=== PATIENT | female | born 1940 | race Caucasian/White ===

== ENCOUNTER 2024-10-09 04:39 | Emergency (ER) | payer MEDICARE, BC ==
[~2024-10-09] VITALS: Ht 152.4 cm; Wt 49.9 kg
[2024-10-09] MEDS ORDERED: LEVO88TA2 PO (04:59)
[2024-10-09] MEDS ORDERED: DORZ10DR11 OP (04:59)
[2024-10-09] MEDS ORDERED: ATOM40CA PO (04:59)
[2024-10-09] MEDS ORDERED: SERT100T PO (04:59)
[2024-10-09] MEDS ORDERED: POTA10CA43 PO (04:59)
[2024-10-09] MEDS ORDERED: LOSA50TA39 PO (04:59)
[2024-10-09] MEDS ORDERED: POLY17PO4 PO (04:59)
[2024-10-09] MEDS ORDERED: ATOR20TA PO (04:59)
[2024-10-09] MEDS ORDERED: METO-356 PO (04:59)
[2024-10-09] MEDS ORDERED: FURO40TA5 PO (04:59)
[2024-10-09] MEDS ORDERED: MORPHINE SULFATE 4 MG/1 ML DISP.SYRIN ONE (05:06)
[2024-10-09] MEDS: MORPHINE SULFATE 2 MG/1 ML DISP.SYRIN IV ONE (05:07)
[2024-10-09] MEDS: FAMOTIDINE. 20 MG/2 ML VIAL IV ONE (05:07)
[2024-10-09] MEDS: IV NORMAL SALINE 1000 ML BAG IV ONE (05:07)
[2024-10-09] MEDS: ONDANSETRON 4 MG/2 ML VIAL IV ONE (05:07)
[2024-10-09 05:14] LABS: *BILIRUBIN,URIN NEGATIVE (NEGATIVE); *BLOOD, URINE NEGATIVE (NEGATIVE); *CLARITY,URINE SLIGHTLY CLOUDY (CLEAR); *COLOR,URINE YELLOW (YELLOW); *KETONES,URINE TRACE (NEGATIVE); *PROTEIN,URINE NEGATIVE (NEGATIVE); *UROBILINOGEN,URINE 0.2 E.U./dl (NORMAL); LEUKOCYTE ESTERASE ,URINE NEGATIVE (NEGATIVE); NITRITE, URINE NEGATIVE (NEGATIVE); PLATELET COUNT (AUTO) 216 K/uL (179-408); RED BLOOD CELL COUNT(AUTO) 5.10 MIL/uL (3.63-4.92); RED CELL DISTRIBUTION WIDTH 15.4 % (12.3-17.7); UGLUCOSE NEGATIVE (NEGATIVE); WHITE BLOOD COUNT (AUTO) 14.2 K/uL (3.8-11.8)
[2024-10-09 05:19] LABS: CREATININE 1.0 mg/dL (0.6-1.3); SODIUM SERUM 141 mmol/L (136-145); UREA NITROGEN, BLOOD 27 mg/dL (7-18)
[2024-10-09 05:23] LABS: ASPARTATE AMINOTRANSFERASE 14 U/L (15-37); TOTAL PROTEIN, SERUM 7.4 g/dL (6.4-8.2)
[2024-10-09 05:42] LABS: SQUAMOUS EPITHELIAL CELL,UR FEW /HPF (NONE SEEN); URINE AMORPHOUS PHOSPHATES FEW /HPF
[2024-10-09 05:43] LABS: COARSE GRANULAR CASTS,URINE 0-3 /LPF
[2024-10-09] MEDS ORDERED: HYDROMORPHONE 1 MG/1 ML DISP.SYRIN ONE (05:49)
[2024-10-09] MEDS: HYDROMORPHONE 1 MG/1 ML DISP.SYRIN IV ONE (06:01)
[2024-10-09 06:17] VITALS: BP 177/76
[2024-10-09] MEDS ORDERED: POTASSIUM CHLORIDE 20 MEQ TAB.PRT.SR ONE (06:33)
[2024-10-09] MEDS: POTASSIUM CHLORIDE 20 MEQ TAB.PRT.SR PO ONE (06:35)
[2024-10-09 06:44] VITALS: BP 175/72; O2SAT 96
== END 2024-10-09 06:41 | disposition home or self-care (01) ==
LOC: ER 04:41
DX: K59.00 Constipation, unspecified (principal); R10.84 Generalized abdominal pain; R11.2 Nausea with vomiting, unspecified; E78.5 Hyperlipidemia, unspecified; E87.6 Hypokalemia; E03.9 Hypothyroidism, unspecified; F32.A Depression, unspecified; I10 Essential (primary) hypertension; Z79.899 Other long term (current) drug therapy; Z88.0 Allergy status to penicillin; Z88.2 Allergy status to sulfonamides; Z95.0 Presence of cardiac pacemaker
CPT/HCPCS: 99285; 74176; 96374; 96375; 96361; 80076; 80048; 81001; 83690; 84443; 85025; 36415; J1308; J0360; J2405; J1171; J2270; J7040; A4606; A4663